=== PATIENT | female | born 1960 | race Caucasian/White ===

== ENCOUNTER 2024-02-01 13:58 | Outpatient (CLI) | payer OTHER | END 2024-02-01 13:59 | disposition home or self-care (01) | LOC: CSHMAMMO 13:58 | PROVIDERS: ATTEND Obstetrics & Gynecology | DX: R92.8 Other abnormal and inconclusive findings on diagnostic imaging of breast (principal) | CPT/HCPCS: 77066; G0279 ==

== ENCOUNTER 2024-10-30 16:38 | Outpatient (CLI) | payer OTHER | END 2024-10-30 16:39 | disposition home or self-care (01) | LOC: CSHCT 16:38 | PROVIDERS: ATTEND Pediatrics | DX: S90.32XA Contusion of left foot, initial encounter (principal) ==

== ENCOUNTER 2025-01-17 08:59 | Outpatient (CLI) | payer OTHER | END 2025-01-17 09:00 | disposition home or self-care (01) | LOC: CSHMAMMO 08:59 | PROVIDERS: ATTEND Family Medicine | DX: Z12.31 Encounter for screening mammogram for malignant neoplasm of breast (principal); Z85.820 Personal history of malignant melanoma of skin | CPT/HCPCS: 77063; 77067 ==

== ENCOUNTER 2025-02-13 08:40 | Day surgery (SDC) | payer OTHER ==
[2025-02-09 10:22] VITALS: BMI 24.5
[2025-02-13] MEDS ORDERED: PROPOFOL 20 ML ONE (10:00)
[2025-02-13] MEDS ORDERED: Lidocaine 1% PF 5 ML VIAL ONE (10:00)
== END 2025-02-13 11:40 | disposition home or self-care (01) ==
LOC: CSHSDC 08:40
PROVIDERS: ATTEND Surgery
PROC: 0DJD8ZZ Inspection of Lower Intestinal Tract, Via Natural or Artificial Opening Endoscopic (ICD-10-PCS; principal; 2025-02-13)
DX: Z12.11 Encounter for screening for malignant neoplasm of colon (principal); K64.4 Residual hemorrhoidal skin tags; K64.2 Third degree hemorrhoids; K57.30 Diverticulosis of large intestine without perforation or abscess without bleeding; K21.9 Gastro-esophageal reflux disease without esophagitis; E03.9 Hypothyroidism, unspecified; F32.A Depression, unspecified; Z86.0100 Personal history of colon polyps, unspecified; Z90.710 Acquired absence of both cervix and uterus; Z79.890 Hormone replacement therapy; Z79.899 Other long term (current) drug therapy
CPT/HCPCS: J2704